=== PATIENT | female | born 1995 | race African-American/Black ===

== ENCOUNTER 2016-06-15 12:41 | Emergency (ER) | payer OTHER ==
[2016-06-15 13:11] VITALS: TEMP 98; BMI 22.6
--- NOTE | 2016-06-15 16:41 | PDOC ---
History of Present Illness - General History Source: Patient Exam Limitations: No Limitations - History of Present Illness Initial Comments: 06/15/16 17:19 Patient is a 20 year old female with significant past medical history of IDDM who presents to the ED with abdominal pain and vomiting for 1 week. She notes that her symptoms worsened today because she had 4 loose stools and she has been hyperglycemic for a week, her glucose level has been in 300-400s. Last time she had DKA was few years ago. She denies any fever or upper respiratory infection symptoms. She reports her LMP was 12/5.Patient also reports increased urinary output. Social history: non smoker, no alcohol use, no drug use, works in [employer] Surgical history: none PCP - [place] [id number] [address] [facility] <Nivia Rios - Last Filed: 06/15/16 21:22> <Desi Thibodeaux - Last Filed: 06/15/16 21:32> - General Chief Complaint: Pain, Acute Stated Complaint: ABD PAIN, VOMITING Time Seen by Provider: 06/15/16 16:40 Past History <Nivia Rios - Last Filed: 06/15/16 21:22> - Past Medical History Anemia: No Asthma: No Cancer: No Cardiac Disorders: No CVA: No COPD: No CHF: No Dementia: No Diabetes: Yes (iddm) GI Disorders: No Disorders: No HTN: No Hypercholesterolemia: No Liver Disease: No Seizures: No Thyroid Disease: No - Reproductive History (#): 0 Para: 0 - Immunization History Immunization Up to Date: Yes - Psycho/Social/Smoking Cessation Hx Anxiety: No Suicidal Ideation: No Smoking Status: No Smoking History: Never smoked Have you smoked in the past 12 months: No Number of Cigarettes Smoked Daily: 0 Information on smoking cessation initiated: No Hx Alcohol Use: No Drug/Substance Use Hx: No Substance Use Type: None Hx Substance Use Treatment: No <Desi Thibodeaux - Last Filed: 06/15/16 21:32> - Past Medical History Allergies/Adverse Reactions: Allergies Allergy/AdvReac Type Severity Reaction Status Date / Time omeprazole [From Prilosec] Allergy Verified 06/15/16 13:08 omeprazole magnesium Allergy Verified 06/15/16 13:08 [From Prilosec] vancomycin AdvReac Itching Verified 06/15/16 13:08 Home Medications: Ambulatory Orders Insulin Aspart [Novolog Flexpen] 0 unit SQ ASDIR 10/11/14 Insulin Glargine,Hum.rec.anlog [Lantus Solostar PEN -] 22 units SQ HS #0 Review of Systems - Review of Systems Able to Perform ROS?: Yes Comments:: 06/15/16 17:19 CONSTITUTIONAL: Absent: fever, chills, diaphoresis, generalized weakness, malaise, loss of appetite HEENT: Absent: rhinorrhea, nasal congestion, throat pain, throat swelling, difficulty swallowing, mouth swelling, ear pain, eye pain, visual Changes CARDIOVASCULAR: Absent: chest pain, syncope, palpitations, irregular heart rate, lightheadedness , peripheral edema RESPIRATORY: Absent: cough, shortness of breath, dyspnea with exertion, orthopnea, wheezing, stridor, hemoptysis GASTROINTESTINAL: Present: abdominal pain, nausea, vomiting, diarrhea Absent: abdominal distension, constipation, melena, hematochezia GENITOURINARY: Present: frequency Absent: dysuria, urgency, hesitancy, hematuria, flank pain, genital pain MUSCULOSKELETAL: Absent: myalgia, arthralgia, joint swelling SKIN: Absent: rash, itching, pallor HEMATOLOGIC/IMMUNOLOGIC: Absent: easy bleeding, easy bruising, lymphadenopathy, frequent infections ENDOCRINE: Absent: unexplained weight gain, unexplained weight loss, heat intolerance, cold intolerance NEUROLOGIC: Absent: headache, focal weakness or paresthesias, dizziness, unsteady gait, seizure, mental status changes, bladder or bowel incontinence PSYCHIATRIC: Absent: anxiety, depression, suicidal or homicidal ideation, hallucinations. <Nivia Rios - Last Filed: 06/15/16 21:22> *Physical Exam - Vital Signs Last Vital Signs Temp Pulse Resp BP Pulse Ox 98.0 F 96 H 18 140/91 100 06/15/16 13:09 06/15/16 13:09 06/15/16 13:09 06/15/16 13:09 06/15/16 13:09 - Physical Exam Comments: 06/15/16 17:20 GENERAL: Well developed, well nourished. Awake and alert. No acute distress. HEENT: Normocephalic, atraumatic. PERRLA, EOMI. No conjunctival pallor. Sclera are non- icteric. Moist mucous membranes. Oropharynx is clear. NECK: Supple. Full ROM. No JVD. Carotid pulses 2+ and symmetric, without bruits. No thyromegaly. No lymphadenopathy. CARDIOVASCULAR: Regular rate and rhythm. No murmurs, rubs, or gallops. Distal pulses are 2+ and symmetric. PULMONARY: No evidence of respiratory distress. Lungs clear to auscultation bilaterally. No wheezing, rales or rhonchi. ABDOMINAL: +suprapubic discomfort lower abdominal pain. Soft. Non-tender. Non-distended. No rebound or guarding. No organomegaly. Normoactive bowel sounds. MUSCULOSKELETAL Normal range of motion at all joints. No bony deformities or tenderness. No CVA tenderness. EXTREMITIES: No cyanosis. No clubbing. No edema. No calf tenderness. SKIN: Warm and dry. Normal capillary refill. No rashes. No jaundice. NEUROLOGICAL: Alert, awake, appropriate. Cranial nerves 2-12 intact. No deficits to light touch and temperature in face, upper extremities and lower extremities. No motor deficits in the in face, upper extremities and lower extremities. Normoreflexic in the upper and lower extremities. Normal speech. Toes are down-going bilaterally. Gait is normal without ataxia. PSYCHIATRIC: Cooperative. Good eye contact. Appropriate mood and affect. <Nivia Rios - Last Filed: 06/15/16 21:22> - Vital Signs Last Vital Signs Temp Pulse Resp BP Pulse Ox 98.0 F 96 H 18 140/91 100 06/15/16 13:09 06/15/16 13:09 06/15/16 13:09 06/15/16 13:09 06/15/16 13:09 <Desi Thibodeaux - Last Filed: 06/15/16 21:32> ED Treatment Course - LABORATORY CBC & Chemistry Diagram: 06/15/16 17:11 06/15/16 17:11 - RADIOLOGY Radiology Studies Ordered: 06/15/16 21:22 EXAM#: US/TRANSVAGINAL US PREG Transvaginal obstetrical ultrasound elevated beta hCG level The exam demonstrates a single viable intrauterine gestation with an approximate gestational age of 6 weeks 0 days on the basis of crown-rump length (0.3 cm). Embryonic cardiac rate 110 BPM. No subchorionic implantation bleed is seen. There is no free intraperitoneal fluid within the lower pelvis. The ovaries appear unremarkable. There is no Doppler evidence of ovarian torsion, sensitivity 70%. Impression: Single viable intrauterine gestation at approximately 6 weeks 0 days. <Nivia Rios - Last Filed: 06/15/16 21:22> - LABORATORY CBC & Chemistry Diagram: 06/15/16 17:11 06/15/16 17:11 <Desi Thibodeaux - Last Filed: 06/15/16 21:32> Medical Decision Making - Medical Decision Making 06/15/16 21:25 20-year-old female presents because of some nausea and vomiting for the past week, but today she also had 4 episodes of loose diarrhea Last menstrual period was April 27 She has a benign abdominal exam UA shows a mild UTI and she will be placed on antibiotics Past medical history significant for nasal independent diabetes for the past decade. -She will said that she had been admitted for DKA several years back. Is not had any vomiting while in the emergency department. She actually has been eating. Her urine test came back positive, and therefore, a beta hCG was done which revealed a beta hCG greater than 27,000 This led to a transvaginal ultrasound that showed a single live IUP at 6 weeks and 0 days with cardiac rate of 110 bpm. There was no subchorionic implantation bleed., The ovaries appeared unremarkable, there was no evidence of ovarian torsion Impression hyperemesis, hyperglycemia , type 1 diabetes, early Patient received several liters of normal saline to correct for a trace acetone that was found on her labs Patient will be placed on antibiotics and referred to [facility] for further care Patient feels much better after her IV fluids and Zofran IV <Desi Thibodeaux - Last Filed: 06/15/16 21:32> *DC/Admit/Observation/Transfer - Attestations Scribe Attestion: 06/15/16 17:20 Documentation prepared by YANCY Granados, acting as medical device sales representative for Desi Thibodeaux MD. <Nivia Rios - Last Filed: 06/15/16 21:22> <Desi Thibodeaux - Last Filed: 06/15/16 21:32> Diagnosis at time of Disposition: Type 1 diabetes mellitus affecting , antepartum Intractable vomiting Qualifiers: Vomiting type: unspecified Nausea presence: with nausea Qualified Code(s): R11.2 - Nausea with vomiting, unspecified Qualifiers: Weeks of gestation: less than 8 weeks Qualified Code(s): Z3A.01 - Less than 8 weeks gestation of UTI (urinary tract infection) Qualifiers: Urinary tract infection type: acute cystitis Hematuria presence: without hematuria Qualified Code(s): N30.00 - Acute cystitis without hematuria - Discharge Dispostion Disposition: HOME Condition at time of disposition: Stable - Referrals Referrals: STAFF,NOT ON [Primary Care Provider] - - Patient Instructions Printed Discharge Instructions: DI for Urinary Tract Infection (UTI), DI for Hyperemesis Gravidarum, DI for Hyperglycemia -- Adult Additional Instructions: YOU MUST FOLLOW UP WITH YOUR REGULAR PHYSICIAN AND ALSO SEE [facility] FOR CARE IT IS IMPORTANT TO BE VERY COMPLIANT WITH YOU INSULIN DURING YOUR AND TAKE DO YOUR DAILY FINGER STICKS PLEASE DECORATOR MANNEQUIN YOUR ANTIBIOTICS AT YOUR PHARMACY
[2016-06-15] MEDS ORDERED: ONDANSETRON 4 MG/2 ML VIAL IVPB ONE (16:57)
[2016-06-15] MEDS ORDERED: SODIUM CHLORIDE 1,000 ML IV STA ×3 (16:57→21:14)
[2016-06-15] MEDS ORDERED: ONDANSETRON 4 MG/2 ML VIAL ONE (17:24)
[2016-06-15 17:28] LABS: BASOPHIL 0.7 % (0-2.0); EOSINOPHIL 0.7 % (0-4.5); MCH 28.3 pg (25.7-33.7); MCHC 33.4 g/dl (32.0-36.0); MEAN CELL VOLUME 84.5 fl (80-96); MEAN PLT VOLUME 9.1 fl (7.5-11.1); NEUTROPHILS 73.8 % (42.8-82.8); PLATELET COUNT 236 K/MM3 (134-434); RDW 14.4 % (11.6-15.6); WHITE BLOOD COUNT 8.6 K/mm3 (4.0-10.0)
[2016-06-15 17:30] LABS: URINE APPEARANCE CLEAR; URINE BILIRUBIN NEGATIVE (NEGATIVE); URINE BLOOD NEGATIVE (NEGATIVE); URINE COLOR STRAW; URINE GLUCOSE (UA) 3+ (NEGATIVE); URINE KETONE 2+ (NEGATIVE); URINE NITRITE NEGATIVE (NEGATIVE); URINE PROTEIN NEGATIVE (NEGATIVE); URINE UROBILINOGEN NEGATIVE E.U./dl (0.2-1.0)
[2016-06-15 17:36] LABS: URINE LEUK ESTERASE 1+ (NEGATIVE)
[2016-06-15 17:37] LABS: URINE BACTERIA RARE /hpf (NONE SEEN); URINE MUCUS RARE; URINE RBC 3 /hpf (0-3); URINE WBC 11 /hpf (3-5)
[2016-06-15 18:01] LABS: ALBUMIN 3.5 g/dl (3.4-5.0); ALK PHOS 86 U/L (45-117); ANION GAP 10 (8-16); BILIRUBIN,TOTAL 0.6 mg/dL (0.2-1.0); CO2 23 mmol/L (21-32); CREATININE 0.6 mg/dL (0.55-1.02); SGOT/AST 9 U/L (15-37); SGPT/ALT 12 U/L (12-78); TOT PROT 7.3 g/dl (6.4-8.2)
[2016-06-15 18:05] LABS: GLUCOSE,RANDOM 307 mg/dL (74-106)
[2016-06-15] MEDS ORDERED: CEPHALEXIN MONOHYDRATE 500 MG CAPSULE (UD) PO ONE (21:32)
[2016-06-15] MEDS ORDERED: CEPHALEXIN MONOHYDRATE 250 MG CAPSULE (FP) ONE (22:46)
[2016-06-15 22:52] VITALS: BP 132/74; PULSE 72
== END 2016-06-15 22:52 | disposition home or self-care (01) ==
LOC: JER 12:41
PROC: 3E0337Z Introduction of Electrolytic and Water Balance Substance into Peripheral Vein, Percutaneous Approach (ICD-10-PCS; principal; 2016-06-15)
PROC: 3E033GC Introduction of Other Therapeutic Substance into Peripheral Vein, Percutaneous Approach (ICD-10-PCS; 2016-06-15)
DX: O24.011 Pre-existing type 1 diabetes mellitus, in pregnancy, first trimester (principal); E10.9 Type 1 diabetes mellitus without complications; Z79.4 Long term (current) use of insulin; O23.31 Infections of other parts of urinary tract in pregnancy, first trimester; Z3A.01 Less than 8 weeks gestation of pregnancy
CPT/HCPCS: 36415; 76817-TC; 80053; 81003; 81015; 82009; 83690; 84702; 84703; 85025; 96361; 96374; 99283-25

== ENCOUNTER 2017-01-23 17:55 | Emergency (ER) | payer OTHER ==
[2017-01-23 17:59] VITALS: BP 123/76; PULSE 106; TEMP 99.3; BMI 25.8
--- NOTE | 2017-01-23 19:22 | PDOC ---
History of Present Illness - General Chief Complaint: Rash Stated Complaint: ALLERGIC REACTION - History of Present Illness Initial Comments: 01/2301/23/17 20:07 not seen by Wen TRIANA Past History - Past Medical History Allergies/Adverse Reactions: Allergies Allergy/AdvReac Type Severity Reaction Status Date / Time omeprazole [From Prilosec] Allergy Verified 01/23/17 17:59 omeprazole magnesium Allergy Verified 01/23/17 17:59 [From Prilosec] vancomycin AdvReac Itching Verified 01/23/17 17:59 Home Medications: Ambulatory Orders Insulin Aspart [Novolog Flexpen] 0 unit SQ ASDIR 10/11/14 Insulin Glargine,Hum.rec.anlog [Lantus Solostar PEN -] 22 units SQ HS #0 Hydrocortisone 2.5% Lotion [Hytone 2.5% Lotion -] 1 applic TP BID #1 bottle 07/10 Anemia: No Asthma: No Cancer: No Cardiac Disorders: No CVA: No COPD: No CHF: No Dementia: No Diabetes: Yes (iddm) GI Disorders: No Disorders: No HTN: No Hypercholesterolemia: No Liver Disease: No Seizures: No Thyroid Disease: No - Reproductive History (#): 0 Para: 0 - Immunization History Immunization Up to Date: Yes - Psycho/Social/Smoking Cessation Hx Anxiety: No Suicidal Ideation: No Smoking Status: No Smoking History: Never smoked Have you smoked in the past 12 months: No Number of Cigarettes Smoked Daily: 0 Hx Alcohol Use: No Drug/Substance Use Hx: No Substance Use Type: None Hx Substance Use Treatment: No *Physical Exam - Vital Signs Last Vital Signs Temp Pulse Resp BP Pulse Ox 99.3 F 106 H 20 123/76 99 01/23/17 17:57 01/23/17 17:57 01/23/17 17:57 01/23/17 17:57 01/23/17 17:57 *DC/Admit/Observation/Transfer Diagnosis at time of Disposition: Allergic reaction, urticaria - Prescriptions Prescriptions: Hydrocortisone 2.5% Lotion [Hytone 2.5% Lotion -] 1 applic TP BID #1 bottle - Referrals Referrals: Anuradha Jacobs [Primary Care Provider] - - Patient Instructions Printed Discharge Instructions: DI for General Allergic Reactions Additional Instructions: Take cetirizine for itching as directed by warehouse worker's instructions. Take pepcid or zantac as directed by warehouse worker's instructions. Make an appointment with your doctor for referral to research nutritionist/educational institution president. Return to ER for shortness of breath, wheezing, drooling or any other concerns.
[2017-01-23] MEDS ORDERED: hydrOXYzine HCL 25 MG TABLET (FP) PO ONE ×2 (19:51→19:53)
--- NOTE | 2017-01-23 20:00 | PDOC ---
History of Present Illness - General Chief Complaint: Rash Stated Complaint: ALLERGIC REACTION Time Seen by Provider: 01/23/17 19:38 History Source: Patient Exam Limitations: No Limitations - History of Present Illness Initial Comments: 01/23/17 19:52 This is a 21yo woman with PMH DM1 who presents with hives to extremities for 3 weeks. She states she returned to her job 3 weeks ago and noticed she has had progressive eruption of hives starting on her upper extremities and now currently over lower extremities also. She denies changes in soaps, hair products, lotions, shampoo, conditioner, deodorant, fabric softener or detergents. She denies SOB, wheezing, fevers, vocal changes, nausea or vomiting. 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 [employer] Timing/Duration: reports: other (3 weeks) Past History - Past Medical History Allergies/Adverse Reactions: Allergies Allergy/AdvReac Type Severity Reaction Status Date / Time omeprazole [From Prilosec] Allergy Verified 01/23/17 17:59 omeprazole magnesium Allergy Verified 01/23/17 17:59 [From Prilosec] vancomycin AdvReac Itching Verified 01/23/17 17:59 Home Medications: Ambulatory Orders Insulin Aspart [Novolog Flexpen] 0 unit SQ ASDIR 10/11/14 Insulin Glargine,Hum.rec.anlog [Lantus Solostar PEN -] 22 units SQ HS #0 Hydrocortisone 2.5% Lotion [Hytone 2.5% Lotion -] 1 applic TP BID #1 bottle 07/10 Anemia: No Asthma: No Cancer: No Cardiac Disorders: No CVA: No COPD: No CHF: No Dementia: No Diabetes: Yes (iddm) GI Disorders: No Disorders: No HTN: No Hypercholesterolemia: No Liver Disease: No Seizures: No Thyroid Disease: No - Reproductive History (#): 0 Para: 0 - Immunization History Immunization Up to Date: Yes - Psycho/Social/Smoking Cessation Hx Anxiety: No Suicidal Ideation: No Smoking Status: No Smoking History: Never smoked Have you smoked in the past 12 months: No Number of Cigarettes Smoked Daily: 0 Hx Alcohol Use: No Drug/Substance Use Hx: No Substance Use Type: None Hx Substance Use Treatment: No Review of Systems - Review of Systems Able to Perform ROS?: Yes Is the patient limited Maori proficient: No Constitutional: No: Symptoms Reported HEENTM: No: Symptoms Reported Respiratory: No: Symptoms reported Cardiac (ROS): No: Symptoms Reported ABD/GI: No: Symptoms Reported : No: Symptoms Reported Musculoskeletal: No: Symptoms Reported Integumentary: Yes: See HPI Neurological: No: Symptoms reported *Physical Exam - Vital Signs Last Vital Signs Temp Pulse Resp BP Pulse Ox 99.3 F 106 H 20 123/76 99 01/23/17 17:57 01/23/17 17:57 01/23/17 17:57 01/23/17 17:57 01/23/17 17:57 - Physical Exam General Appearance: Yes: Appropriately Dressed. No: Apparent Distress HEENT: positive: EOMI, JEN, Normal ENT Inspection Neck: positive: Trachea midline, Supple Respiratory/Chest: positive: Lungs Clear, Normal Breath Sounds. negative: Respiratory Distress, Accessory Muscle Use, Stridor Cardiovascular: positive: Regular Rhythm, Regular Rate. negative: Edema Gastrointestinal/Abdominal: positive: Normal Bowel Sounds, Soft. negative: Tender Musculoskeletal: positive: Normal Inspection. negative: CVA Tenderness Extremity: positive: Normal Capillary Refill, Normal Inspection Integumentary: positive: Hives (noted in various sizes to extremities x4. None on trunk.) Medical Decision Making - Medical Decision Making 01/23/17 19:56 A: This is a 21yo woman with PMH DM1 who presents with hives to extremities for 3 weeks. She states she returned to her job 3 weeks ago and noticed she has had progressive eruption of hives starting on her upper extremities and now currently over lower extremities also. She denies changes in soaps, hair products, lotions, shampoo, conditioner, deodorant, fabric softener or detergents. She denies SOB, wheezing, fevers, vocal changes, nausea or vomiting. She is speaking full sentences. Lungs CTAB. (-) stridor. No drooling present. No oropharynx edema. P: allergic reaction to unknown substance - hydroxyzine 25mg po now - f/u with PMD - instructions for OTC pepcid/zantac, cetirizine and hydrocortisone 2.5% topical *DC/Admit/Observation/Transfer Diagnosis at time of Disposition: Allergic reaction, urticaria - Discharge Dispostion Disposition: HOME Condition at time of disposition: Stable Admit: No - Prescriptions Prescriptions: Hydrocortisone 2.5% Lotion [Hytone 2.5% Lotion -] 1 applic TP BID #1 bottle - Referrals Referrals: Anuradha Jacobs [Primary Care Provider] - - Patient Instructions Printed Discharge Instructions: DI for General Allergic Reactions Additional Instructions: Take cetirizine for itching as directed by whipped topping finisher's instructions. Take pepcid or zantac as directed by whipped topping finisher's instructions. Make an appointment with your doctor for referral to parts counterman/discharge door operator. Return to ER for shortness of breath, wheezing, drooling or any other concerns. - Post Discharge Activity
== END 2017-01-23 20:12 | disposition home or self-care (01) ==
LOC: JERFT 17:55
DX: L50.0 Allergic urticaria (principal); T78.40XA Allergy, unspecified, initial encounter; X58.XXXA Exposure to other specified factors, initial encounter; E10.9 Type 1 diabetes mellitus without complications; Z79.4 Long term (current) use of insulin
CPT/HCPCS: 99281-25

== ENCOUNTER 2017-03-25 13:51 | Emergency (ER) | payer OTHER ==
[2017-03-25 13:59] VITALS: TEMP 98.1; BMI 25.8
--- NOTE | 2017-03-25 16:09 | PDOC ---
History of Present Illness - General Chief Complaint: Pain Stated Complaint: NAUSEA/VOMITING Time Seen by Provider: 03/25/17 15:37 - History of Present Illness Initial Comments: 03/25/17 16:49 21 yo with /o NIDDM who presents with N/V. Patient reports N/V this Wednesday ( 03/21/17 ) with 12-15 episodes of non biliary/non bloody emesis in the past 24 hours. Also endorses diffuse, crampy, unrelenting, abdominal pain beginning yesterday and increased thirst. Normal urinary frequency and denies dysuria. Also complains of diarrhea beginning yesterday with 1 episode of watery stool. Denies fevers/chills, vision changes, SOB, chest pain, blood in stool, irregular vaginal bleeding. States that she took test this past Wednesday (03/21) with positive urine diptick preg test. LMP 02/03/17. Has not attempted OTC symptom control. Reports taking Novolog per 25 correction factor ( BS minus target )/25. Also compliant with Lantus 30 U QAM. Past History - Past Medical History Allergies/Adverse Reactions: Allergies Allergy/AdvReac Type Severity Reaction Status Date / Time omeprazole [From Prilosec] Allergy Verified 03/25/17 13:59 omeprazole magnesium Allergy Verified 03/25/17 13:59 [From Prilosec] vancomycin AdvReac Itching Verified 03/25/17 13:59 Home Medications: Ambulatory Orders Insulin Aspart [Novolog Flexpen] 0 unit SQ ASDIR 10/11/14 Insulin Glargine,Hum.rec.anlog [Lantus Solostar PEN -] 30 units SQ HS 03/25/17 Anemia: No Asthma: No Cancer: No Cardiac Disorders: No CVA: No COPD: No CHF: No Dementia: No Diabetes: Yes (iddm) GI Disorders: No Disorders: No HTN: No Hypercholesterolemia: No Liver Disease: No Seizures: No Thyroid Disease: No - Reproductive History Is Patient Now?: Yes (#): 2 Para: 0 Cervical CA: No Dysfunctional Uterine Bleeding: No Ectopic : No Endometrial CA: No Polycystic Ovaries: No Therapeutic (s) & number: No Tubal Ligation: No Spontaneous : 1 - Immunization History Immunization Up to Date: Yes - Suicide/Smoking/Psychosocial Hx Smoking Status: No Smoking History: Never smoked Have you smoked in the past 12 months: No Number of Cigarettes Smoked Daily: 0 Information on smoking cessation initiated: No Hx Alcohol Use: No Drug/Substance Use Hx: No Substance Use Type: None Hx Substance Use Treatment: No Review of Systems - Review of Systems Comments:: 03/25/17 16:56 GENERAL/CONSTITUTIONAL: No fever or chills. No weakness. HEAD, EYES, EARS, NOSE AND THROAT: No change in vision. No ear pain or discharge. No sore throat.- CARDIOVASCULAR: No chest pain or shortness of breath RESPIRATORY: No cough, wheezing, or hemoptysis. GASTROINTESTINAL:+ nausea, and vomiting, and diarrhea. No constipation. GENITOURINARY: No dysuria, frequency, or change in urination. MUSCULOSKELETAL: No joint or muscle swelling or pain. No neck or back pain. SKIN: No rash NEUROLOGIC: No headache, vertigo, loss of consciousness, or change in strength/ sensation. ENDOCRINE: + increased thirst. No abnormal weight change HEMATOLOGIC/LYMPHATIC: No anemia, easy bleeding, or history of blood clots. ALLERGIC/IMMUNOLOGIC: No hives or skin allergy. *Physical Exam - Vital Signs Last Vital Signs Temp Pulse Resp BP Pulse Ox 98.1 F 127 H 16 143/84 99 03/25/17 13:55 03/25/17 13:55 03/25/17 13:55 03/25/17 13:55 03/25/17 13:55 - Physical Exam Comments: 03/25/17 16:56 GENERAL: Awake, alert, and fully oriented, in no acute distress HEAD: No signs of trauma, normocephalic, atraumatic EYES: PERRLA, EOMI, sclera anicteric, conjunctiva clear ENT: hearing grossly normal, nares patent, oropharynx clear without exudates. Moist mucosa NECK: Normal ROM, supple, no lymphadenopathy, JVD, or masses LUNGS: No distress, speaks full sentences, clear to auscultation bilaterally HEART: Regular rate and rhythm, normal S1 and S2, no murmurs, rubs or gallops, peripheral pulses normal and equal bilaterally. ABDOMEN: Soft,ttp diffusely. Normoactive bowel sounds. No guarding, no rigidity no rebound. No masses or CVA ttp. Absent suprpapubic ttp. Neg alvarado sign. Neg mcb[place] point ttp. EXTREMITIES : Normal inspection, Normal range of motion, no edema. No clubbing or cyanosis. SKIN: Warm, Dry, normal turgor, no rashes or lesions noted. ED Treatment Course - LABORATORY CBC & Chemistry Diagram: 03/25/17 16:30 03/25/17 16:30 Medical Decision Making - Medical Decision Making 03/25/17 16:58 21 yo with /o NIDDM who presents with non biliary/non bloody emesis since Wednesday ( 03/21/17 ) with 24 hours of diffuse, crampy abdominal pain and 1 episode of diarrhea beginning yesterday. No irregular vaginal bleeding or other associated complaints or urinary symptoms. LMP 02/03. Hemodynamically stable and physical exam with diffuse ttp. Consider viral gastroenteritis vs HHS, vs. diabetic gastroparesis, vs. ectopic ED Course: - CBC, CMP, Lipase, lactic acid, serum osmol, UA , Urine Cx, POC Glucose - 2 L NS - 4 Mg Zofran - Transvaginal U/S 03/25/17 17:07 CBC: Unremarkable UA: 3+ Glu, 2+ Ketones, 1 + blood, 2 wbc, 1 rbc. Neg nitrite. 03/25/17 17:21 Anion Gap 13 NA: 131 ( corrected 135) BS: 285 Bicarb 22 03/25/17 18:01 BHCG 36,651 03/25/17 18:02 Lipase:Unremarkable VBG: pH 7.42 03/25/17 18:52 Vaginal U/s: 6 w 1 d viable intrauterine , 2.3 cm L ovarian cyst with no evidence of torsion. Small free fluid in left adenexa. D/C patient with return precautions and instructions to establish OB care, and f /u with PCP for glucose control. *DC/Admit/Observation/Transfer Diagnosis at time of Disposition: Viral gastroenteritis - Discharge Dispostion Disposition: HOME - Referrals Referrals: Anuradha Jacobs [Primary Care Provider] - Bebo García MD [Staff Physician] - - Patient Instructions Printed Discharge Instructions: DI for Viral Gastroenteritis -- Adult Additional Instructions: Please return to ED if you experience any worsening abdominal pain, pain in stool, fevers/chills, irregular vaginal bleeding, or worsening symptoms. Please follow up with primary care for blood sugar control. Please follow up with Ob/ Child Care Sitter for gestational screening and routine care. - Attestations Physician Attestion: 03/25/17 19:21 I attest to the information provided in this note.
[2017-03-25] MEDS ORDERED: SODIUM CHLORIDE 1,000 ML IV STA ×2 (16:22→17:17)
[2017-03-25] MEDS ORDERED: diphenhydrAMINE HCL 12.5 MG/5 ML UNIT-DOSE CUPS PO ONE (16:24)
[2017-03-25] MEDS ORDERED: ONDANSETRON 4 MG/2 ML VIAL IVPB ONE (16:33)
[2017-03-25] MEDS ORDERED: ONDANSETRON 4 MG/2 ML VIAL ONE (16:33)
[2017-03-25 16:40] LABS: URINE APPEARANCE SLCLOUDY; URINE BILIRUBIN NEGATIVE (NEGATIVE); URINE BLOOD 1+ (NEGATIVE); URINE COLOR LTYELLOW; URINE GLUCOSE (UA) 3+ (NEGATIVE); URINE KETONE 2+ (NEGATIVE); URINE NITRITE NEGATIVE (NEGATIVE); URINE PROTEIN NEGATIVE (NEGATIVE); URINE UROBILINOGEN NEGATIVE mg/dL (0.2-1.0)
[2017-03-25 16:40] LABS: BASOPHIL 0.4 % (0-2.0); EOSINOPHIL 0.2 % (0-4.5); MCH 28.4 pg (25.7-33.7); MCHC 33.8 g/dl (32.0-36.0); MEAN CELL VOLUME 83.9 fl (80-96); MEAN PLT VOLUME 8.8 fl (7.5-11.1); NEUTROPHILS 72.5 % (42.8-82.8); PLATELET COUNT 249 K/MM3 (134-434); WHITE BLOOD COUNT 7.2 K/mm3 (4.0-10.0)
[2017-03-25 17:04] LABS: ALBUMIN 3.6 g/dl (3.4-5.0); ALK PHOS 85 U/L (45-117); ANION GAP 13 (8-16); BILIRUBIN,TOTAL 0.7 mg/dL (0.2-1.0); CALCIUM 9.4 mg/dL (8.5-10.1); CO2 22 mmol/L (21-32); CREATININE 0.6 mg/dL (0.55-1.02); GLUCOSE,RANDOM 285 mg/dL (74-106); SGOT/AST 8 U/L (15-37); SGPT/ALT 13 U/L (12-78); TOT PROT 7.6 g/dl (6.4-8.2)
[2017-03-25 17:33] LABS: URINE MUCUS RARE; URINE RBC 1 /hpf (0-3); URINE WBC 2 /hpf (3-5)
[2017-03-25 17:55] LABS: VENOUS PH 7.42 (7.32-7.42)
[2017-03-25 18:16] LABS: URINE LEUK ESTERASE Negative (NEGATIVE)
[2017-03-25 19:37] VITALS: BP 125/55; PULSE 81
--- NOTE | 2017-03-25 19:52 | PDOC ---
Attending Attestation - Resident Resident Name: Ryan Cartwright - ED Attending Attestation I have performed the following: I have examined & evaluated the patient, The case was reviewed & discussed with the resident, I agree w/resident's findings & plan, Exceptions are as noted - HPI HPI: 03/25/17 19:45 21-year-old female LMP about 6 weeks presents with intractable nausea/ vomiting/diarrhea and intermittent abdominal cramping, emesis and diarrhea are nonbloody/nonbilious. No fevers or chills, no sick contacts, no diet changes, no travel. - Physicial Exam PE: 03/25/17 19:45 Vitals as noted, tachycardia on arrival but heart rate improved to 80 after IV fluids Moist mucous membranes after fluids Abdomen is benign without focal tenderness or guarding. No pelvic tenderness. - Medical Decision Making 03/25/17 19:45 Patient seen and evaluated with the resident. I agree with the overall evaluation, assessment, and management with the following summary of visit: 21-year-old female type I diabetic recently discovered she is presents with intractable nausea/vomiting/diarrhea which seems most consistent with gastroenteritis, rule out ketosis. labs wnl, no leukocytosis and normal diff chem wnl, glucose 200s with normal AG UA clear with 2+ ketones resuscitated with 2L IVF, sono shows IUP, HR improved to 80 and pt's symptomatically markedly improved. Ambulating, tolerating PO, abd remains benign Agrees with d/c plan, will f/u with OB, understands return criteria
[2017-03-25 20:00] LABS: MAGNESIUM 1.9 mg/dL (1.8-2.4)
== END 2017-03-25 19:37 | disposition home or self-care (01) ==
LOC: JER 13:51
PROC: 3E0337Z Introduction of Electrolytic and Water Balance Substance into Peripheral Vein, Percutaneous Approach (ICD-10-PCS; principal; 2017-03-25)
PROC: 3E033GC Introduction of Other Therapeutic Substance into Peripheral Vein, Percutaneous Approach (ICD-10-PCS; 2017-03-25)
DX: A08.4 Viral intestinal infection, unspecified (principal); O98.511 Other viral diseases complicating pregnancy, first trimester; O34.81 Maternal care for other abnormalities of pelvic organs, first trimester; N83.202 Unspecified ovarian cyst, left side; Z3A.01 Less than 8 weeks gestation of pregnancy
CPT/HCPCS: 36415; 76817-TC; 80053; 81003; 81015; 82803; 83605; 83690; 83735; 83930; 84100; 84702; 85025; 86850; 86900; 86901; 87086; 99284-25

== ENCOUNTER 2017-03-30 01:03 | Emergency (ER) | payer OTHER ==
[2017-03-30 01:23] VITALS: BP 116/73; PULSE 71; TEMP 97.6; BMI 25.7
--- NOTE | 2017-03-30 01:32 | PDOC ---
History of Present Illness - General History Source: Patient Exam Limitations: No Limitations - History of Present Illness Initial Comments: 03/30/17 01:39 21 year old female who is 7 weeks , with significant past medical history of NIDDM, who presents to the emergency room complaining of nausea and multiple episodes of vomiting x2 days. The patient was here on 03/25/17, 5 days ago, with the same complaint and was given zofran. An ultrasound showed a single live IUP of about 7 weeks. The patient states that she is still taking the zofran, but vomits right after taking the medication. She did not eat or drink anything today because she cannot keep anything down. She also notes that she has not been able to take her insulin today either. Denies fever, chills.Denies abdominal cramping, vaginal bleeding. Denies chest pain, SOB, cough. Allergies: omeprazole, omeprazole magnesium, vancomycin PCP: Dr. Anuradha Jacobs <Julianna Holt - Last Filed: 03/30/17 01:39> <Desi Thibodeaux - Last Filed: 03/31/17 02:23> - General Chief Complaint: Nausea/Vomiting Stated Complaint: VOMITING,7 WKS Time Seen by Provider: 03/30/17 01:12 Past History <Julianna Holt - Last Filed: 03/30/17 01:39> - Past Medical History Anemia: No Asthma: No Cancer: No Cardiac Disorders: No CVA: No COPD: No CHF: No Dementia: No Diabetes: Yes (iddm) GI Disorders: No Disorders: No HTN: No Hypercholesterolemia: No Liver Disease: No Seizures: No Thyroid Disease: No - Reproductive History (#): 2 Para: 0 Cervical CA: No Dysfunctional Uterine Bleeding: No Ectopic : No Endometrial CA: No Polycystic Ovaries: No Therapeutic (s) & number: No Tubal Ligation: No Spontaneous : 1 - Immunization History Immunization Up to Date: Yes - Suicide/Smoking/Psychosocial Hx Smoking Status: No Smoking History: Never smoked Have you smoked in the past 12 months: No Number of Cigarettes Smoked Daily: 0 Information on smoking cessation initiated: No Hx Alcohol Use: No Drug/Substance Use Hx: No Substance Use Type: None Hx Substance Use Treatment: No <Desi Thibodeaux - Last Filed: 03/31/17 02:23> - Past Medical History Allergies/Adverse Reactions: Allergies Allergy/AdvReac Type Severity Reaction Status Date / Time omeprazole [From Prilosec] Allergy Verified 03/30/17 01:13 omeprazole magnesium Allergy Verified 03/30/17 01:13 [From Prilosec] vancomycin AdvReac Itching Verified 03/30/17 01:13 Home Medications: Ambulatory Orders Insulin Aspart [Novolog Flexpen] 0 unit SQ ASDIR 10/11/14 Insulin Glargine,Hum.rec.anlog [Lantus Solostar PEN -] 30 units SQ HS 03/25/17 Nitrofurantoin Monohyd/M-Cryst [Macrobid -] 100 mg PO BID #14 capsule 03/27/17 Ondansetron HCl [Zofran] 4 mg PO BID PRN #10 tablet 03/27/17 Ondansetron [Zofran Odt -] 4 mg SL TID #21 od.tablet 03/30/17 Review of Systems - Review of Systems Able to Perform ROS?: Yes Comments:: 03/30/17 01:40 CONSTITUTIONAL: Absent: fever, no chills, no fatigue EYES: Absent: visual changes ENT: Absent: ear pain, no sore throat CARDIOVASCULAR: Absent: chest pain, no palpitations RESPIRATORY: Absent: cough, no SOB GI: Present: nausea, vomiting Absent: abdominal pain, no constipation, no diarrhea GENITOURINARY: Absent: dysuria, no frequency, no hematuria MUSCULOSKELETAL: Absent: back pain, no arthralgia, no myalgia SKIN: Absent: rash NEURO: Absent: headache <Estatico,Julianna - Last Filed: 03/30/17 01:39> *Physical Exam - Vital Signs Last Vital Signs Temp Pulse Resp BP Pulse Ox 97.6 F 71 18 116/73 100 03/30/17 01:13 03/30/17 01:13 03/30/17 01:13 03/30/17 01:13 03/30/17 01:13 - Physical Exam Comments: 03/30/17 01:40 GENERAL: Well-appearing, well-nourished. No apparent distress. HEENT: Normocephalic, atraumatic. PERRL, EOM intact. CARDIOVASCULAR: Tachycardic. Normal S1, S2. Regular rhythm. PULMONARY: Clear to auscultation bilaterally. ABDOMEN: Soft, non-distended, non-tender. EXTREMITIES: Normal ROM in all four extremities. No gross deformities. SKIN: Warm, dry. No rash NEUROLOGICAL: No focal neurological deficits. <Julianna Holt - Last Filed: 03/30/17 01:39> - Vital Signs Last Vital Signs Temp Pulse Resp BP Pulse Ox 97.6 F 71 18 116/73 100 03/30/17 01:13 03/30/17 01:13 03/30/17 01:13 03/30/17 01:13 03/30/17 01:13 <Desi Thibodeaux - Last Filed: 03/31/17 02:23> ED Treatment Course - LABORATORY CBC & Chemistry Diagram: 03/30/17 01:35 03/30/17 05:00 <Desi Thibodeaux - Last Filed: 03/31/17 02:23> *DC/Admit/Observation/Transfer - Attestations Scribe Attestion: 03/30/17 01:41 Documentation prepared by YANCY Collins, acting as medical office technologist for Desi Thibodeaux MD. <Julianna Holt - Last Filed: 03/30/17 01:39> <Desi Thibodeaux - Last Filed: 03/31/17 02:23> Diagnosis at time of Disposition: Hyperemesis arising during , Dehydration - Discharge Dispostion Disposition: HOME Condition at time of disposition: Improved - Prescriptions Prescriptions: Ondansetron [Zofran Odt -] 4 mg SL TID #21 od.tablet - Referrals Referrals: Anuradha Jacobs [Primary Care Provider] - - Patient Instructions Printed Discharge Instructions: DI for Hyperemesis Gravidarum Additional Instructions: Keep your appointment with your primary so you can get the referral to OB Use the Zofran ODT for nausea, the rx went to your pharmacy Returnt to us if any problems Best- Dr. Bruno Phan
[2017-03-30 01:47] LABS: BASOPHIL 0.6 % (0-2.0); EOSINOPHIL 0.6 % (0-4.5); MCH 28.7 pg (25.7-33.7); MCHC 33.9 g/dl (32.0-36.0); MEAN CELL VOLUME 84.6 fl (80-96); MEAN PLT VOLUME 9.2 fl (7.5-11.1); NEUTROPHILS 75.4 % (42.8-82.8); PLATELET COUNT 247 K/MM3 (134-434); RDW 13.9 % (11.6-15.6); WHITE BLOOD COUNT 8.1 K/mm3 (4.0-10.0)
[2017-03-30] MEDS ORDERED: SODIUM CHLORIDE 1,000 ML IV ONE (01:54)
[2017-03-30] MEDS ORDERED: ONDANSETRON 4 MG/2 ML VIAL IVPB ONE (01:55)
[2017-03-30 02:09] LABS: ALBUMIN 3.8 g/dl (3.4-5.0); ALK PHOS 80 U/L (45-117); ANION GAP 17 (8-16); CALCIUM 8.9 mg/dL (8.5-10.1); CO2 21 mmol/L (21-32); CREATININE 0.7 mg/dL (0.55-1.02); GLUCOSE,RANDOM 282 mg/dL (74-106); SGOT/AST 11 U/L (15-37); SGPT/ALT 14 U/L (12-78); TOT PROT 7.7 g/dl (6.4-8.2)
--- NOTE | 2017-03-30 02:20 | PDOC ---
*Physical Exam - Vital Signs Last Vital Signs Temp Pulse Resp BP Pulse Ox 97.6 F 71 18 116/73 100 03/30/17 01:13 03/30/17 01:13 03/30/17 01:13 03/30/17 01:13 03/30/17 01:13 <Shy Engle - Last Filed: 03/30/17 02:29> - Vital Signs Last Vital Signs Temp Pulse Resp BP Pulse Ox 97.6 F 71 18 116/73 100 03/30/17 01:13 03/30/17 01:13 03/30/17 01:13 03/30/17 01:13 03/30/17 01:13 <Bruno Phan - Last Filed: 03/30/17 07:05> ED Treatment Course - LABORATORY CBC & Chemistry Diagram: 03/30/17 01:35 03/30/17 01:35 - ADDITIONAL ORDERS Additional order review: Laboratory Results 03/30/17 03/30/17 01:35 01:35 Sodium 136 Potassium 3.3 L Chloride 98 Carbon Dioxide 21 Anion Gap 17 H BUN 9 Creatinine 0.7 Creat Clearance w eGFR > 60 Random Glucose 282 H Calcium 8.9 Total Bilirubin 1.0 D AST 11 L D ALT 14 Alkaline Phosphatase 80 Total Protein 7.7 Albumin 3.8 Acetone, Qual Positive small 1+ H 03/30/17 01:35 RBC 4.70 MCV 84.6 MCHC 33.9 RDW 13.9 MPV 9.2 Neutrophils % 75.4 Lymphocytes % 19.3 D Monocytes % 4.1 Eosinophils % 0.6 Basophils % 0.6 - Medications Given in the ED: ED Medications Discontinued Medications Generic Name Dose Route Start Last Admin Trade Name Carmineq PRN Reason Stop Dose Admin Ondansetron HCl 4 mg 03/30/17 01:55 03/30/17 01:56 Zofran Injection IVPB 03/30/17 01:56 4 mg NOW ONE Administration <Shy Engle - Last Filed: 03/30/17 02:29> - LABORATORY CBC & Chemistry Diagram: 03/30/17 01:35 03/30/17 05:00 - ADDITIONAL ORDERS Additional order review: Laboratory Results 03/30/17 03/30/17 01:35 01:35 Sodium 136 Potassium 3.3 L Chloride 98 Carbon Dioxide 21 Anion Gap 17 H BUN 9 Creatinine 0.7 Creat Clearance w eGFR > 60 Random Glucose 282 H Calcium 8.9 Total Bilirubin 1.0 D AST 11 L D ALT 14 Alkaline Phosphatase 80 Total Protein 7.7 Albumin 3.8 Acetone, Qual Positive small 1+ H 03/30/17 01:35 RBC 4.70 MCV 84.6 MCHC 33.9 RDW 13.9 MPV 9.2 Neutrophils % 75.4 Lymphocytes % 19.3 D Monocytes % 4.1 Eosinophils % 0.6 Basophils % 0.6 - Medications Given in the ED: ED Medications Discontinued Medications Generic Name Dose Route Start Last Admin Trade Name Freq PRN Reason Stop Dose Admin Ondansetron HCl 4 mg 03/30/17 01:55 03/30/17 01:56 Zofran Injection IVPB 03/30/17 01:56 4 mg NOW ONE Administration <Bruno Phan - Last Filed: 03/30/17 07:05> Medical Decision Making - Medical Decision Making 03/30/17 02:29 Pt is a 21 year old approximately 7 weeks female () with significant past medical history of NIDDM, who presents to the emergency department with nausea and multiple emetic episodes(nonbloody/nonbilious) for approximately 2 days. Plan: -Pt care signed out by Dr. Thibodeaux -Waiting for Labs -Reasses pt. <Shy Engle - Last Filed: 03/30/17 02:29> *DC/Admit/Observation/Transfer <Shy Engle - Last Filed: 03/30/17 02:29> - Discharge Dispostion Admit: No - Attestations Physician Attestion: 03/30/17 02:20 I, Dr. Bruno Phan, attest that this document has been prepared under my direction and personally reviewed by me in its entirety. I further attest, that it accurately reflects all work, treatment, procedures and medical decision -making performed by me. <Bruno Phan - Last Filed: 03/30/17 07:05> Diagnosis at time of Disposition: Hyperemesis gravidarum, Dehydration - Discharge Dispostion Disposition: HOME Condition at time of disposition: Improved - Prescriptions Prescriptions: Ondansetron [Zofran Odt -] 4 mg SL TID #21 od.tablet - Referrals Referrals: Anuradha Jacobs [Primary Care Provider] - - Patient Instructions Printed Discharge Instructions: DI for Hyperemesis Gravidarum Additional Instructions: Keep your appointment with your primary so you can get the referral to OB Use the Zofran ODT for nausea, the rx went to your pharmacy Returnt to us if any problems Best- Dr. Bruno Phan - Post Discharge Activity
[2017-03-30] MEDS ORDERED: POTASSIUM CHLORIDE TABS 20 MEQ TABLET.ER (FP) PO ONE (02:37)
[2017-03-30] MEDS ORDERED: ONDANSETRON 4 MG/2 ML VIAL IVPUSH ONE (02:37)
[2017-03-30] MEDS ORDERED: INSULIN REGULAR HUMAN 100 UNITS/ML *VIAL IVPUSH ONE (02:37)
[2017-03-30] MEDS ORDERED: SODIUM CHLORIDE 1,000 ML IV STA ×2 (02:37→03:26)
[2017-03-30] MEDS ORDERED: FAMOTIDINE 20 MG/50 ML IVPB 50 ML IVPB ONE (03:32)
[2017-03-30] MEDS ORDERED: MAG HYDROX/AL HYDROX/SIMETH 30 ML UNIT-DOSE CUP PO ONE (05:07)
[2017-03-30 05:24] LABS: VENOUS PH 7.33 (7.32-7.42)
[2017-03-30 05:25] LABS: VENOUS BLOOD GAS HCO3 20.6 meq/L (19-25)
[2017-03-30 05:53] LABS: ANION GAP 11 (8-16); CALCIUM 7.4 mg/dL (8.5-10.1); CO2 19 mmol/L (21-32); CREATININE 0.4 mg/dL (0.55-1.02); GLUCOSE,RANDOM 104 mg/dL (74-106)
[2017-03-30 07:08] LABS: ACETONE SERUM TRACE (NEGATIVE)
== END 2017-03-30 07:26 | disposition home or self-care (01) ==
LOC: JER 01:03
PROC: 3E0337Z Introduction of Electrolytic and Water Balance Substance into Peripheral Vein, Percutaneous Approach (ICD-10-PCS; principal; 2017-03-30)
PROC: 3E033GC Introduction of Other Therapeutic Substance into Peripheral Vein, Percutaneous Approach (ICD-10-PCS; 2017-03-30)
PROC: 3E033VG Introduction of Insulin into Peripheral Vein, Percutaneous Approach (ICD-10-PCS; 2017-03-30)
PROC: 3E033GC Introduction of Other Therapeutic Substance into Peripheral Vein, Percutaneous Approach (ICD-10-PCS; 2017-03-30)
PROC: 3E033GC Introduction of Other Therapeutic Substance into Peripheral Vein, Percutaneous Approach (ICD-10-PCS; 2017-03-30)
DX: O26.891 Other specified pregnancy related conditions, first trimester (principal); O21.1 Hyperemesis gravidarum with metabolic disturbance; Z3A.01 Less than 8 weeks gestation of pregnancy; O24.011 Pre-existing type 1 diabetes mellitus, in pregnancy, first trimester; E10.9 Type 1 diabetes mellitus without complications; Z79.4 Long term (current) use of insulin
CPT/HCPCS: 36415; 80048; 80053; 82009; 82803; 85025; 96361; 96365; 96375; 99281-25; 99283-25

== ENCOUNTER 2017-10-04 11:46 | Emergency (ER) | payer OTHER ==
[2017-10-04 12:02] VITALS: BP 123/77; PULSE 109; TEMP 98.1; BMI 25.8
--- NOTE | 2017-10-04 12:27 | PDOC ---
History of Present Illness - General Chief Complaint: Cold Symptoms Stated Complaint: SORE THROAT Time Seen by Provider: 10/04/17 12:16 - History of Present Illness Initial Comments: When he 1-year-old female with past medical history significant for type 1 diabetes on insulin presents for evaluation of sore throat 6 days. She did have an associated fever 2 days ago but has been afebrile febrile since. She complains of sinus congestion and intermittent headache along with her sore throat. 10/04/17 12:22 Past History - Past Medical History Allergies/Adverse Reactions: Allergies Allergy/AdvReac Type Severity Reaction Status Date / Time omeprazole [From Prilosec] Allergy Verified 10/04/17 12:00 omeprazole magnesium Allergy Verified 10/04/17 12:00 [From Prilosec] vancomycin AdvReac Itching Verified 10/04/17 12:00 Home Medications: Ambulatory Orders Insulin Aspart [Novolog Flexpen] 0 unit SQ ASDIR 10/11/14 Insulin Glargine,Hum.rec.anlog [Lantus Solostar PEN -] 30 units SQ HS 03/25/17 Amox-Tr/K Cl [Augmentin - 875Mg Tablet] 1 tab PO BID #20 tablet 10/04/17 Anemia: No Asthma: No Cancer: No Cardiac Disorders: No CVA: No COPD: No CHF: No Dementia: No Diabetes: Yes (iddm) GI Disorders: No Disorders: No HTN: No Hypercholesterolemia: No Liver Disease: No Seizures: No Thyroid Disease: No - Reproductive History (#): 2 Para: 0 Cervical CA: No Dysfunctional Uterine Bleeding: No Ectopic : No Endometrial CA: No Polycystic Ovaries: No Therapeutic (s) & number: No Tubal Ligation: No Spontaneous : 1 - Immunization History Immunization Up to Date: Yes - Suicide/Smoking/Psychosocial Hx Smoking Status: No Smoking History: Never smoked Have you smoked in the past 12 months: No Number of Cigarettes Smoked Daily: 0 Information on smoking cessation initiated: No Hx Alcohol Use: No Drug/Substance Use Hx: No Substance Use Type: None Hx Substance Use Treatment: No Review of Systems - Review of Systems Comments:: GENERAL/CONSTITUTIONAL: [+ fever or chills. No weakness. No weight change.] HEAD, EYES, EARS, NOSE AND THROAT: [No change in vision. No ear pain or discharge. + sore throat.] CARDIOVASCULAR: [No chest pain or shortness of breath.] RESPIRATORY: [+ cough, no wheezing, or hemoptysis.] GASTROINTESTINAL: [No nausea, vomiting, diarrhea or constipation. No rectal bleeding.] GENITOURINARY: [No dysuria, frequency, or change in urination.] MUSCULOSKELETAL: [No joint or muscle swelling or pain. No neck or back pain.] SKIN AND BREASTS: [No rash or easy bruising.] NEUROLOGIC: [No headache, vertigo, loss of consciousness, or loss of sensation.] PSYCHIATRIC: [No depression or anxiety.] ENDOCRINE: [No increased thirst. No abnormal weight change.] HEMATOLOGIC/LYMPHATIC: [No anemia, easy bleeding, or history of blood clots.] ALLERGIC/IMMUNOLOGIC: [No hives or skin allergy. No latex allergy.] 10/04/17 12:22 *Physical Exam - Vital Signs Last Vital Signs Temp Pulse Resp BP Pulse Ox 98.1 F 109 H 18 123/77 100 10/04/17 12:00 10/04/17 12:00 10/04/17 12:00 10/04/17 12:00 10/04/17 12:00 - Physical Exam Comments: GENERAL: [The patient is awake, alert, and fully oriented, in no acute distress. ] HEAD: [Normal with no signs of trauma.] EYES: [Pupils equal, round and reactive to light, extraocular movements intact, sclera anicteric, conjunctiva clear.] ENT: [Ears normal, nares patent, oropharynx injected and erythematous without exudates. Moist mucous membranes.] NECK: [Normal range of motion, supple mild lymphadenopathy, JVD, or masses.] LUNGS: [Breath sounds equal, clear to auscultation bilaterally. No wheezes, and no crackles.] HEART: [Regular rate and rhythm, normal S1 and S2 without murmur, rub or gallop. ] ABDOMEN: [Soft, nontender, normoactive bowel sounds. No guarding, no rebound. No masses.] EXTREMITIES: [Normal range of motion, no edema. No clubbing or cyanosis. No cords, erythema, or tenderness.] NEUROLOGICAL: [Cranial nerves II through XII grossly intact. Normal speech, normal gait.] PSYCH: [Normal mood, normal affect.] SKIN: [Warm, Dry, normal turgor, no rashes or lesions noted.] 10/04/17 12:26 Medical Decision Making - Medical Decision Making Strep is negative I'll treat her sinus infection in this 21-year-old diabetic female who was febrile 2 days ago 10/04/17 12:46 *DC/Admit/Observation/Transfer Diagnosis at time of Disposition: Sinusitis - Discharge Dispostion Disposition: HOME Condition at time of disposition: Stable Decision to Admit order: No - Referrals Referrals: Anuradha Jacobs [Primary Care Provider] - - Patient Instructions Printed Discharge Instructions: Sinusitis, Sinus Headache Additional Instructions: Take all antibiotics as prescribed return to the emergency room if his symptoms worsen or go unresolved. Follow-up through primary care physician in one to 2 days. You're being treated for a sinus infection. At showers with humidified air will help clear her nasal passages. He may take Advil and Tylenol to treat her fever - Post Discharge Activity
== END 2017-10-04 12:49 | disposition home or self-care (01) ==
LOC: JERFT 11:46
DX: J01.80 Other acute sinusitis (principal); E10.9 Type 1 diabetes mellitus without complications; Z79.4 Long term (current) use of insulin
CPT/HCPCS: 87070; 87430; 99281-25

== ENCOUNTER 2017-10-30 12:20 | Emergency (ER) | payer OTHER ==
[2017-10-30 12:25] VITALS: BP 137/87; PULSE 95; TEMP 98; BMI 24.2
--- NOTE | 2017-10-30 12:50 | PDOC ---
History of Present Illness - General Chief Complaint: Redness To Affected Area Stated Complaint: TOE NAIL PROBLEM Time Seen by Provider: 10/30/17 12:29 History Source: Patient Exam Limitations: No Limitations - History of Present Illness Initial Comments: CHIEF COMPLAINT: 21 y/o afebrile female with PMH IDDM c/o left big toe redness and swelling. HISTORY OF PRESENT ILLNESS: The patient had a pedicure 3 days ago and yesterday began developing redness and swelling to the area of her left toe. She denies fever, streaking. Vital signs on arrival are within normal limits. REVIEW OF SYSTEMS: GENERAL/CONSTITUTIONAL: No fever/chills. No weakness. No weight change.. MUSCULOSKELETAL: No joint or muscle swelling or pain. No neck or back pain. SKIN: +redness and swelling to left big toe. NEUROLOGIC: No headache, vertigo, loss of consciousness, or loss of sensation. PHYSICAL EXAM: VITAL_SIGNS: within normal limits GENERAL_APPEARANCE: alert, cooperative, no obvious discomfort. Patient is ambulatory. MENTAL_STATUS: speech clear, oriented X 3, responds appropriately to questions. NEURO: motor intact and sensory intact in injured extremity. EXTREMITIES: Minimal swelling and erythema to medial border of left big toe along nail bed that is fluctuant and TTP, consistent with paronychia. No streaking. SKIN: warm, dry, good color. Past History - Past Medical History Allergies/Adverse Reactions: Allergies Allergy/AdvReac Type Severity Reaction Status Date / Time omeprazole [From Prilosec] Allergy Verified 10/30/17 12:25 omeprazole magnesium Allergy Verified 10/30/17 12:25 [From Prilosec] vancomycin AdvReac Itching Verified 10/30/17 12:25 Home Medications: Ambulatory Orders Insulin Aspart [Novolog Flexpen] 0 unit SQ ASDIR 10/11/14 Insulin Glargine,Hum.rec.anlog [Lantus Solostar PEN -] 22 units SQ HS 03/25/17 Cephalexin Monohydrate [Keflex -] 500 mg PO Q6H #20 capsule 10/30/17 Anemia: No Asthma: No Cancer: No Cardiac Disorders: No CVA: No COPD: No CHF: No Dementia: No Diabetes: Yes (iddm) GI Disorders: No Disorders: No HTN: No Hypercholesterolemia: No Liver Disease: No Seizures: No Thyroid Disease: No - Reproductive History (#): 2 Para: 0 Cervical CA: No Dysfunctional Uterine Bleeding: No Ectopic : No Endometrial CA: No Polycystic Ovaries: No Therapeutic (s) & number: No Tubal Ligation: No Spontaneous : 1 - Immunization History Immunization Up to Date: Yes - Suicide/Smoking/Psychosocial Hx Smoking Status: No Smoking History: Never smoked Have you smoked in the past 12 months: No Number of Cigarettes Smoked Daily: 0 Hx Alcohol Use: No Drug/Substance Use Hx: No Substance Use Type: None Hx Substance Use Treatment: No *Physical Exam - Vital Signs Last Vital Signs Temp Pulse Resp BP Pulse Ox 98 F 95 H 18 137/87 99 10/30/17 12:22 10/30/17 12:22 10/30/17 12:22 10/30/17 12:22 10/30/17 12:22 Procedures - Incision and Drainage I&D Site: Left: Paronychia Betadine cleansed: Yes Blade Size: 11 Attempts: 2 Plain Packing: No Dressing: Yes Medical Decision Making - Medical Decision Making A/P: 21 y/o female with paronychia of left great toe. I&Ded the wound and covered. Will send rx for keflex given her h/o IDDM. Instructed the patient to keep area clean and covered. SHe is f/u with her Sensitizer on and I encouraged her to keep the apptmt. Instructed her to return to the ER with any worsening or concerning symptoms. The patient verbalizes understanding of all instructions, has no further questions and is awaiting discharge. *DC/Admit/Observation/Transfer Diagnosis at time of Disposition: Paronychia - Discharge Dispostion Disposition: HOME Condition at time of disposition: Good - Prescriptions Prescriptions: Cephalexin Monohydrate [Keflex -] 500 mg PO Q6H #20 capsule - Referrals Referrals: Anuradha Jacobs [Primary Care Provider] - - Patient Instructions Printed Discharge Instructions: DI for Paronychia Additional Instructions: Discharge INstructions: -Please keep wound clean and covered -A prescription for antibiotics has been sent to your pharmacy; please take as prescribed -Return to the ER with any worsening or concerning symptoms - Post Discharge Activity Forms/Work/School Notes: Back to Work
== END 2017-10-30 13:06 | disposition home or self-care (01) ==
LOC: JERFT 12:20
PROC: 0H9RXZZ Drainage of Toe Nail, External Approach (ICD-10-PCS; principal; 2017-10-30)
DX: L03.032 Cellulitis of left toe (principal)
CPT/HCPCS: 99281-25

== ENCOUNTER 2019-01-01 21:13 | Emergency (ER) | payer OTHER ==
[2019-01-01 21:43] VITALS: BP 128/78; PULSE 85; TEMP 98.1; BMI 25.8
[2019-01-01] MEDS ORDERED: predniSONE 10 MG TABLET (UD) PO ONE (22:58)
[2019-01-01] MEDS ORDERED: predniSONE 20 MG TABLET (UD) PO ONE (22:59)
--- NOTE | 2019-01-01 23:05 | PDOC ---
History of Present Illness - General Chief Complaint: Allergic Reaction Stated Complaint: ALLERGIC REACTION Time Seen by Provider: 01/01/19 22:38 History Source: Patient Exam Limitations: No Limitations - History of Present Illness Initial Comments: 01/01/19 23:00 Patient is a 23 year old female with h/o juvenile diabetic c/o generalized hives x 3 years. States the that she had the hives only appear in the summertime and has been going on for the last 3 years, does not get these symptoms in the wintertime. States the hives are itchy and occasionally painful. She saw a ankle patch molder once who, she said did not do any testing but told her it was not related to any food or any products, and gave her prednisone. She did not go back but was prescribed prednisone by her primary care doctor. States when she is off the prednisone hives or more symptomatic. She is here today to have the refill of prednisone. States today her throat feels sore, and her skin hurts. Denies shortness of breath, nausea, vomiting. PMD: Dr. 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 No weakness. No weight change. HEAD, EYES, EARS, NOSE AND THROAT: No change in vision. No ear pain or discharge. No sore throat. CARDIOVASCULAR: No chest pain or shortness of breath. RESPIRATORY: No cough, wheezing, or hemoptysis. GASTROINTESTINAL: No nausea, vomiting, diarrhea or constipation. No rectal bleeding. GENITOURINARY: No dysuria, frequency, or change in urination. MUSCULOSKELETAL: No joint or muscle swelling or pain. No neck or back pain. SKIN AND BREASTS: (+) rash or easy bruising. NEUROLOGIC: No headache, vertigo, loss of consciousness, or loss of sensation. PSYCHIATRIC: No depression or anxiety. ENDOCRINE: No increased thirst. No abnormal weight change. HEMATOLOGIC/LYMPHATIC: No anemia, easy bleeding, or history of blood clots. ALLERGIC/IMMUNOLOGIC: No hives or skin allergy. No latex allergy. GENERAL: The patient is awake, alert, and fully oriented, in no acute distress. HEAD: Normal with no signs of trauma. EYES: Pupils equal, round and reactive to light, extraocular movements intact, sclera anicteric, conjunctiva clear. ENT: Ears normal, nares patent, oropharynx clear without exudates. Moist mucous membranes. NECK: Normal range of motion, supple without lymphadenopathy, JVD, or masses. LUNGS: Breath sounds equal, clear to auscultation bilaterally. No wheezes, and no crackles. HEART: Regular rate and rhythm, normal S1 and S2 without murmur, rub. ABDOMEN: Soft, nontender, normoactive bowel sounds. No guarding, no rebound. No masses. EXTREMITIES: Normal range of motion, no edema. No clubbing or cyanosis. No cords, erythema, or tenderness. NEUROLOGICAL: Cranial nerves II through XII grossly intact. Normal speech, normal gait. PSYCH: Normal mood, normal affect. SKIN: Warm, Dry, normal turgor, generalized hives/rashes lesions noted. Past History - Past Medical History Allergies/Adverse Reactions: Allergies Allergy/AdvReac Type Severity Reaction Status Date / Time omeprazole [From Prilosec] Allergy Verified 10/18/18 06:39 omeprazole magnesium Allergy Verified 10/18/18 06:39 [From Prilosec] vancomycin AdvReac Itching Verified 10/18/18 06:39 Home Medications: Ambulatory Orders Insulin Aspart [Novolog Flexpen] 0 unit SQ ASDIR 10/11/14 Insulin Degludec [Tresiba] 100 unit SQ DAILY 10/18/18 hydrOXYzine HCL [Atarax -] 25 mg PO TID #21 tablet 10/18/18 predniSONE [Deltasone -] 40 mg PO DAILY #8 tablet 10/18/18 Prednisone 10 mg PO BID #10 tab.ds.pk 01/01/19 Anemia: No Asthma: No Cancer: No Cardiac Disorders: No CVA: No COPD: No CHF: No Dementia: No Diabetes: Yes (iddm) GI Disorders: No Disorders: No HTN: No Hypercholesterolemia: No Liver Disease: No Seizures: No Thyroid Disease: No - Reproductive History (#): 2 Para: 0 Cervical CA: No Dysfunctional Uterine Bleeding: No Ectopic : No Endometrial CA: No Polycystic Ovaries: No Therapeutic (s) & number: No Tubal Ligation: No Spontaneous : 1 - Immunization History Immunization Up to Date: Yes - Suicide/Smoking/Psychosocial Hx Smoking Status: No Smoking History: Never smoked Have you smoked in the past 12 months: No Number of Cigarettes Smoked Daily: 0 Hx Alcohol Use: No Drug/Substance Use Hx: No Substance Use Type: None Hx Substance Use Treatment: No *Physical Exam - Vital Signs Last Vital Signs Temp Pulse Resp BP Pulse Ox 98.1 F 85 20 128/78 100 01/01/19 21:40 01/01/19 21:40 01/01/19 21:40 01/01/19 21:40 01/01/19 21:40 Medical Decision Making - Medical Decision Making 01/01/19 23:00 Patient is a 23 year old female with h/o juvenile diabetic c/o generalized hives x 3 years. States the that she had the hives only appear in the summertime and has been going on for the last 3 years, does not get these symptoms in the wintertime. States the hives are itchy and occasionally painful. She saw a ankle patch molder once who, she said did not do any testing but told her it was not related to any food or any products, and gave her prednisone. She did not go back but was prescribed prednisone by her primary care doctor. States when she is off the prednisone hives or more symptomatic. She is here today to have the refill of prednisone. States today her throat feels sore, and her skin hurts. Denies shortness of breath, nausea, vomiting. Patient with hive-like rash cause unknown prescription Prednisone Allergy referral. Finger stick Fingerstick is 393 instructed patient to take her regular insulin to cover. I discussed the physical exam findings, ancillary test results and final diagnoses with the patient. I answered all of the patient's questions. The patient was satisfied with the care received and felt comfortable with the discharge plan and treatment plan. The Patient agrees to follow up with the primary care physician within 24-72 hours. *DC/Admit/Observation/Transfer Diagnosis at time of Disposition: Allergic reaction, urticaria - Discharge Dispostion Disposition: HOME Condition at time of disposition: Stable - Prescriptions Prescriptions: Prednisone 10 mg PO BID #10 tab.ds.pk - Referrals Referrals: Abby Ca [Non Staff, Medical] - Carlo Blackman [Staff Physician] - Nick Zaragoza MD [Staff Physician] - - Patient Instructions Printed Discharge Instructions: DI for Hives Additional Instructions: Your Discharge Instructions: You must call primary care physician within 24 hours to arrange follow-up. Return to the Emergency Department with any new, persistent or worsening symptoms, for fever, chills, SOB, dizziness or any other concerning changes that may occur. Check of your fingersticks while on the prednisone take some regular insulin to cover the blood sugar spikes. You must see a ankle patch molder within the next few days - Post Discharge Activity Forms/Work/School Notes: Back to Work
[2019-01-01] MEDS ORDERED: predniSONE 20 MG TABLET (UD) ONE (23:09)
== END 2019-01-02 00:20 | disposition home or self-care (01) ==
LOC: JER 21:13
DX: L50.0 Allergic urticaria (principal)
CPT/HCPCS: 82962; 99281-25

== ENCOUNTER 2020-10-12 21:33 | Emergency (ER) | payer OTHER ==
[2020-10-12 21:41] VITALS: BP 128/77; PULSE 94; TEMP 98.2; BMI 26.9
[2020-10-12] MEDS ORDERED: predniSONE 20 MG TABLET (UD) PO ONE (22:32)
[2020-10-12] MEDS ORDERED: predniSONE 20 MG TABLET (UD) ONE (22:36)
== END 2020-10-12 23:05 | disposition home or self-care (01) ==
LOC: JER 21:33 → JERFT 21:33
DX: L50.9 Urticaria, unspecified (principal)
CPT/HCPCS: 99284-25

== ENCOUNTER 2020-10-19 13:14 | Emergency (ER) | payer OTHER ==
[2020-10-19 13:19] VITALS: BP 110/71; PULSE 83; TEMP 97.9; BMI 26.9
== END 2020-10-19 14:04 | disposition home or self-care (01) ==
LOC: JERFT 13:14
DX: L50.9 Urticaria, unspecified (principal)
CPT/HCPCS: 99283-25

== ENCOUNTER 2020-10-25 16:52 | Emergency (ER) | payer OTHER ==
[2020-10-25 17:24] VITALS: BP 108/76; PULSE 97; TEMP 98.2; BMI 26.9
[2020-10-25] MEDS ORDERED: DEXAMETHASONE SOD PHOSPHATE 10 MG/1 ML VIAL ONE (17:36)
[2020-10-25] MEDS ORDERED: DEXAMETHASONE SOD PHOSPHATE 10 MG/1 ML VIAL IM ONE (17:39)
== END 2020-10-25 17:40 | disposition home or self-care (01) ==
LOC: JERFT 16:52
PROC: 3E023GC Introduction of Other Therapeutic Substance into Muscle, Percutaneous Approach (ICD-10-PCS; principal; 2020-10-25)
DX: L50.9 Urticaria, unspecified (principal)
CPT/HCPCS: 99284-25; J1100

== ENCOUNTER 2020-11-22 15:21 | Emergency (ER) | payer OTHER ==
[2020-11-22 15:27] VITALS: BP 112/75; PULSE 94; TEMP 98.3; BMI 27.3
[2020-11-22] MEDS ORDERED: DEXAMETHASONE SOD PHOSPHATE 10 MG/1 ML VIAL IM ONE (16:11)
[2020-11-22] MEDS ORDERED: DEXAMETHASONE SOD PHOSPHATE 10 MG/1 ML VIAL ONE (16:19)
== END 2020-11-22 17:03 | disposition home or self-care (01) ==
LOC: JERFT 15:21
PROC: 3E0233Z Introduction of Anti-inflammatory into Muscle, Percutaneous Approach (ICD-10-PCS; principal; 2020-11-22)
DX: L50.9 Urticaria, unspecified (principal)
CPT/HCPCS: 99284-25; J1100

== ENCOUNTER 2020-11-25 23:11 | Emergency (ER) | payer OTHER ==
[2020-11-25 23:16] VITALS: BP 116/82; PULSE 99; TEMP 98.4; BMI 27.6
== END 2020-11-26 00:21 | disposition home or self-care (01) ==
LOC: JER 23:11
DX: T78.40XA Allergy, unspecified, initial encounter (principal)
CPT/HCPCS: 99282-25

== ENCOUNTER 2021-11-07 09:53 | Inpatient (IN) | payer OTHER ==
[2021-11-07] MEDS ORDERED: SODIUM CHLORIDE 0.9% 500 ML INFUS.BAG IV ONE ×2 (10:17→11:02)
[2021-11-07] MEDS ORDERED: TRIMETHOBENZAMIDE HCL 200MG/2ML INJ IM ONE ×3 (11:01→20:13)
[2021-11-07 11:26] LABS: BASO % 0.2 % (0-2.0); HEMATOCRIT 39.4 % (32.4-45.2); HEMOGLOBIN 12.6 GM/dL (10.7-15.3); LYMPH % 13.9 % (8-40); MCH 28.3 pg (25.7-33.7); MEAN CELL VOLUME 88.7 fl (80-96); MEAN PLT VOLUME 9.6 fl (7.5-11.1); NEUT % 82.9 % (42.8-82.8); PLATELET COUNT 319 10^3/uL (134-434); RBC 4.45 M/mm3 (3.60-5.2); RDW 13.2 % (11.6-15.6); WHITE BLOOD COUNT 13.8 K/mm3 (4.0-10.0)
[2021-11-07 11:28] LABS: PH,URINE 5.5 (5.0-8.0); URINE APPEARANCE CLEAR; URINE BILIRUBIN NEGATIVE (NEGATIVE); URINE COLOR YELLOW; URINE GLUCOSE (UA) 3+ (NEGATIVE); URINE KETONE 4+ (NEGATIVE); URINE LEUK ESTERASE NEGATIVE (NEGATIVE); URINE NITRITE NEGATIVE (NEGATIVE); URINE PROTEIN NEGATIVE (NEGATIVE); URINE UROBILINOGEN 0.2 mg/dL (0.2-1.0)
[2021-11-07 11:30] LABS: CHLORIDE 99 mmol/L (98-107); SODIUM 133 mmol/L (136-145); VENOUS BASE EXCESS -16.6 mmol/L (-2-2); VENOUS O2 SATURATION 95.7 % (70-80); VENOUS PCO2 28.3 mmHg (38-52)
[2021-11-07 11:32] LABS: VENOUS PH 7.178 (7.310-7.410)
[2021-11-07 11:33] LABS: MAGNESIUM 2.1 mg/dL (1.8-2.4)
[2021-11-07 11:34] LABS: ANION GAP 22 MMOL/L (8-16); BLOOD UREA NITROGEN 14.1 mg/dL (7-18); CO2 12 mmol/L (21-32); LIPASE 38 U/L (73-393)
[2021-11-07 11:36] LABS: SGOT/AST 12 U/L (15-37); SGPT/ALT 15 U/L (13-61)
[2021-11-07 11:37] LABS: PHOSPHOROUS 3.6 mg/dL (2.5-4.9)
[2021-11-07 11:38] LABS: TOT PROT 8.4 g/dl (6.4-8.2)
[2021-11-07 11:39] LABS: BILIRUBIN,TOTAL 0.8 mg/dL (0.2-1)
[2021-11-07 11:40] LABS: ALK PHOS 182 U/L (45-117)
[2021-11-07] MEDS ORDERED: SODIUM CHLORIDE 0.9%/KCL 20 MEQ/1,000 ML INFUS.BAG IV SCH ×2 (11:45→12:00)
[2021-11-07 11:49] LABS: GLUCOSE,RANDOM 654 mg/dL (74-106)
[2021-11-07] MEDS ORDERED: TRIMETHOBENZAMIDE HCL 300 MG CAPSULE PO PRN (12:11)
[2021-11-07] MEDS ORDERED: INSULIN REGULAR 100 UNITS in SODIUM CHLORIDE 99 ML IVPB SCH (12:15)
[2021-11-07] MEDS ORDERED: SODIUM CHLORIDE 0.45%/POT 20 MEQ/1,000 ML INFUS.BAG IV SCH ×2 (12:15→14:18)
[2021-11-07] MEDS ORDERED: METOCLOPRAMIDE HCL INJECTION 10 MG/2 ML VIAL ONE (13:19)
[2021-11-07] MEDS ORDERED: METOCLOPRAMIDE HCL INJECTION 10 MG/2 ML VIAL IVPUSH ONE (13:23)
[2021-11-07 13:58] LABS: CHLORIDE 107 mmol/L (98-107); SODIUM 136 mmol/L (136-145)
[2021-11-07 14:02] LABS: ANION GAP 20 MMOL/L (8-16); BLOOD UREA NITROGEN 15.6 mg/dL (7-18); CO2 9 mmol/L (21-32)
[2021-11-07 14:05] LABS: CREATININE 0.9 mg/dL (0.55-1.3)
[2021-11-07 14:14] LABS: GLUCOSE,RANDOM 582 mg/dL (74-106)
[2021-11-07] MEDS: MUPIROCIN 2% TOPICAL OINTMENT FOR DECOLONIZATION NS SCH ×2 (17:41→23:54)
[2021-11-07] MEDS ORDERED: D5-1/2NS+20 MEQ KCL - 20 MEQ/1,000 ML INFUS.BAG IV SCH (17:45)
[2021-11-07] MEDS ORDERED: D5-1/2NS+10 MEQ KCL - 10 MEQ/1,000 ML INFUS.BAG IV SCH ×2 (17:45→20:13)
[2021-11-07 18:12] LABS: CALCIUM 9.2 mg/dL (8.5-10.1)
[2021-11-07 18:13] LABS: BLOOD UREA NITROGEN 13.8 mg/dL (7-18)
[2021-11-07 18:16] LABS: CREATININE 0.9 mg/dL (0.55-1.3)
[2021-11-07 23:29] LABS: CALCIUM 8.6 mg/dL (8.5-10.1)
[2021-11-07 23:30] LABS: BLOOD UREA NITROGEN 10.1 mg/dL (7-18)
[2021-11-07 23:33] LABS: CREATININE 0.7 mg/dL (0.55-1.3)
[2021-11-07] MEDS: CHLORHEXIDINE GLUCONATE 4% CLEANSER FOR DECOLONIZATION TP SCH (23:54)
[2021-11-08] MEDS ORDERED: METOCLOPRAMIDE HCL INJECTION 10 MG/2 ML VIAL IVPUSH ONE ×2 (00:28→05:00)
[2021-11-08] MEDS ORDERED: D5-1/2NS+10 MEQ KCL - 10 MEQ/1,000 ML INFUS.BAG IV SCH ×2 (00:29→05:07)
[2021-11-08] MEDS ORDERED: INSULIN (LEVEMIR) 100 UNITS/ML UNITS SQ ONE ×2 (00:32→05:06)
[2021-11-08] MEDS ORDERED: ACETAMINOPHEN 1000 MG/100 ML BAG IVPB ONE (05:07)
[2021-11-08] MEDS ORDERED: Insulin (LOG) Aspart 100 UNITS/ML VIAL SQ ONE (05:14)
[2021-11-08] MEDS ORDERED: INSULIN SLIDING SCALE (NOVOLOG) 1 VIAL SQ SCH (07:00)
[2021-11-08 08:07] LABS: BASO % 0.2 % (0-2.0); EOS % 0.1 % (0-4.5); HEMATOCRIT 33.8 % (32.4-45.2); HEMOGLOBIN 11.2 GM/dL (10.7-15.3); LYMPH % 20.3 % (8-40); MCH 28.9 pg (25.7-33.7); MCHC 33.2 g/dl (32.0-36.0); MEAN CELL VOLUME 87.1 fl (80-96); MEAN PLT VOLUME 9.1 fl (7.5-11.1); MONO % 5.5 % (3.8-10.2); NEUT % 73.9 % (42.8-82.8); PLATELET COUNT 264 10^3/uL (134-434); RBC 3.88 M/mm3 (3.60-5.2); RDW 13.3 % (11.6-15.6); WHITE BLOOD COUNT 10.8 K/mm3 (4.0-10.0)
[2021-11-08 08:20] LABS: CALCIUM 8.2 mg/dL (8.5-10.1)
[2021-11-08 08:21] LABS: BLOOD UREA NITROGEN 9.3 mg/dL (7-18); MAGNESIUM 1.9 mg/dL (1.8-2.4)
[2021-11-08 08:24] LABS: CREATININE 0.8 mg/dL (0.55-1.3)
[2021-11-08 08:25] LABS: TOT PROT 6.8 g/dl (6.4-8.2)
[2021-11-08 08:26] LABS: BILIRUBIN,TOTAL 0.9 mg/dL (0.2-1)
[2021-11-08 08:29] LABS: ALBUMIN 3.2 g/dl (3.4-5.0)
[2021-11-08] MEDS: INSULIN SLIDING SCALE (NOVOLOG) 1 VIAL SQ SCH ×4 (09:11→21:42)
[2021-11-08] MEDS: INSULIN (NOVOLOG) ASPART 100 UNITS/ML 10ML VIAL SQ SCH ×3 (09:14→17:25)
[2021-11-08] MEDS: ENOXAPARIN NA (PORCINE) 40 MG/0.4 ML DISP.SYRIN SQ SCH (09:19)
[2021-11-08] MEDS: MUPIROCIN 2% TOPICAL OINTMENT FOR DECOLONIZATION NS SCH ×2 (09:19→21:42)
[2021-11-08] MEDS ORDERED: MELATONIN 5 MG TABLETS PO PRN (19:15)
[2021-11-08] MEDS: INSULIN (LEVEMIR) 100 UNITS/ML UNITS SQ SCH (21:42)
[2021-11-09] MEDS ORDERED: TRIMETHOBENZAMIDE HCL 200MG/2ML INJ IM PRN (00:19)
[2021-11-09] MEDS ORDERED: diphenhydrAMINE HCL 25 MG CAPSULE (FP) PO ONE (02:05)
[2021-11-09] MEDS: CHLORHEXIDINE GLUCONATE 4% CLEANSER FOR DECOLONIZATION TP SCH ×2 (02:15→21:13)
[2021-11-09] MEDS: INSULIN (NOVOLOG) ASPART 100 UNITS/ML 10ML VIAL SQ SCH ×3 (06:43→17:36)
[2021-11-09] MEDS: INSULIN SLIDING SCALE (NOVOLOG) 1 VIAL SQ SCH ×4 (06:43→21:16)
[2021-11-09 08:30] LABS: CALCIUM 8.7 mg/dL (8.5-10.1)
[2021-11-09 08:31] LABS: BLOOD UREA NITROGEN 5.2 mg/dL (7-18); MAGNESIUM 1.7 mg/dL (1.8-2.4)
[2021-11-09 08:34] LABS: CREATININE 0.5 mg/dL (0.55-1.3); PHOSPHOROUS 2.5 mg/dL (2.5-4.9)
[2021-11-09 08:36] LABS: BILIRUBIN,TOTAL 0.5 mg/dL (0.2-1)
[2021-11-09] MEDS: ENOXAPARIN NA (PORCINE) 40 MG/0.4 ML DISP.SYRIN SQ SCH (10:22)
[2021-11-09] MEDS: MUPIROCIN 2% TOPICAL OINTMENT FOR DECOLONIZATION NS SCH ×2 (10:30→21:12)
[2021-11-09 11:47] VITALS: BMI 32.4
[2021-11-09] MEDS: INSULIN (LEVEMIR) 100 UNITS/ML UNITS SQ SCH (21:16)
[2021-11-09] MEDS ORDERED: FAMOTIDINE 20 MG/50 ML IVPB 20 MG/50 ML MG IVPB ONE (23:50)
[2021-11-10] MEDS: INSULIN SLIDING SCALE (NOVOLOG) 1 VIAL SQ SCH ×2 (06:07→12:22)
[2021-11-10] MEDS: INSULIN (NOVOLOG) ASPART 100 UNITS/ML 10ML VIAL SQ SCH ×2 (06:07→12:23)
[2021-11-10 07:44] LABS: HEMATOCRIT 36.4 % (32.4-45.2); HEMOGLOBIN 12.2 GM/dL (10.7-15.3); MCH 28.5 pg (25.7-33.7); MCHC 33.6 g/dl (32.0-36.0); MEAN CELL VOLUME 84.8 fl (80-96); MEAN PLT VOLUME 8.6 fl (7.5-11.1); PLATELET COUNT 269 10^3/uL (134-434); RBC 4.29 M/mm3 (3.60-5.2); RDW 13.1 % (11.6-15.6); WHITE BLOOD COUNT 5.1 K/mm3 (4.0-10.0)
[2021-11-10 08:29] LABS: CALCIUM 8.7 mg/dL (8.5-10.1)
[2021-11-10 08:30] LABS: BLOOD UREA NITROGEN 9.3 mg/dL (7-18); MAGNESIUM 1.6 mg/dL (1.8-2.4)
[2021-11-10 08:33] LABS: CREATININE 0.7 mg/dL (0.55-1.3); PHOSPHOROUS 2.5 mg/dL (2.5-4.9)
[2021-11-10] MEDS ORDERED: MAGNESIUM SULF 50% (8.12 MEQ/2 ML-1 GM VIAL) IVPB ONE (08:54)
[2021-11-10] MEDS: ENOXAPARIN NA (PORCINE) 40 MG/0.4 ML DISP.SYRIN SQ SCH (10:16)
[2021-11-10] MEDS: MUPIROCIN 2% TOPICAL OINTMENT FOR DECOLONIZATION NS SCH (10:16)
[2021-11-10] MEDS ORDERED: hydrOXYzine PAMOATE 25 MG CAPSULE (FP) PO SCH (10:30)
[2021-11-10] MEDS ORDERED: MAGNESIUM OXIDE 400 MG TABLET (FP) PO ONE (11:28)
[2021-11-10 13:40] VITALS: BP 109/66; PULSE 89; TEMP 98.3
== END 2021-11-10 13:49 | disposition home or self-care (01) | DRG 420 ==
LOC: JER 09:53 → JERBED 11:43 → JICU 13:51
PROVIDERS: ADMIT Internal Medicine Pulmonary Disease; ATTEND Internal Medicine Pulmonary Disease
DX: E10.10 Type 1 diabetes mellitus with ketoacidosis without coma (principal); D64.9 Anemia, unspecified; R11.2 Nausea with vomiting, unspecified; D72.829 Elevated white blood cell count, unspecified
CPT/HCPCS: 36415; 71045-TC-FY; 80048; 80053; 81003; 82010; 82803; 82962; 83036; 83690; 83735; 84100; 84484; 84703; 85025; 85027; 87040; 87077; 87086; 93005; 93010; 99285-25; C9803-CS; J3480; U0003; U0005

== ENCOUNTER 2021-12-01 20:38 | Emergency (ER) | payer OTHER ==
[2021-12-01 20:58] VITALS: BP 121/81; PULSE 100; TEMP 98.6; BMI 31.9
[2021-12-01] MEDS ORDERED: MAG HYDROX/AL HYDROX/SIMETH 30 ML UNIT-DOSE CUP PO ONE (22:05)
[2021-12-01] MEDS ORDERED: LIDOCAINE VISCOUS 2% ORAL/TOP 15 ML UNIT-DOSE CUP MM ONE (22:05)
[2021-12-01] MEDS ORDERED: MAG HYDROX/AL HYDROX/SIMETH 30 ML UNIT-DOSE CUP ONE (22:13)
[2021-12-01] MEDS ORDERED: LIDOCAINE VISCOUS 2% ORAL/TOP 15 ML UNIT-DOSE CUP ONE (22:14)
== END 2021-12-01 22:39 | disposition home or self-care (01) ==
LOC: JERFT 20:38
DX: R09.89 Other specified symptoms and signs involving the circulatory and respiratory systems (principal)
CPT/HCPCS: 70360-TC-FY; 99283-25